=== PATIENT | male | born 1970 ===

== ENCOUNTER 2021-06-24 15:46 | Inpatient (IN) | payer OTHER ==
[~2021-06-24] VITALS: Ht 185.4 cm; Wt 197.3 kg
[2021-06-24 21:54] LABS: Basophils # (auto) 0 10 ^3/uL (0-0.2); Basophils % (auto) 0.6 % (0.0-2.0); Eosinophils # (auto) 0.1 10 ^3/uL (0-0.8); Eosinophils % (auto) 1.6 % (0.0-7.0); Hematocrit 37.6 % (41.0-53.0); Hemoglobin 12.1 g/dL (13.5-17.5); Lymphocytes # (auto) 1.4 10 ^3/uL (0.4-5.4); Lymphocytes % (auto) 21.2 % (10.0-50.0); Mean Corpuscular Hemoglobin 26.2 pg (28.0-32.0); Mean Corpuscular Hgb Conc. 32.3 g/dL (32.0-36.0); Mean Corpuscular Volume 81.1 fL (80.0-100.0); Monocytes # (auto) 0.7 10 ^3/uL (0-1.3); Neutrophils # (auto) 4.5 10 ^3/uL (1.6-8.6); Neutrophils % (auto) 66.6 % (37.0-80.0); Red Blood Cells 4.64 10^6/uL (4.5-5.90); Red Cell Distribution Width 17.5 % (11.8-14.3); White Blood Cell 6.7 10^3/uL (4.4-10.8)
[2021-06-24 22:12] LABS: Albumin 3.5 g/dL (3.4-5.0); Calcium 8.5 mg/dL (8.5-10.1); Potassium 4.6 mmol/L (3.5-5.1)
[2021-06-24 22:29] LABS: BUN/Creatinine Ratio 25.2; Bilirubin, Total 0.5 mg/dL (0.2-1.0); Total Protein 7.1 g/dL (6.4-8.2)
[2021-06-24] MEDS ORDERED: ENOXAPARIN SOD 100 MG/1 ML SYRINGE SC ONE (22:45)
[2021-06-24] MEDS ORDERED: ASPirin 81 mg TAB PO ONE (22:45)
[2021-06-25] MEDS ORDERED: FUROSEMIDE 20 MG/2 ML VIAL IV ONE
[2021-06-25] MEDS ORDERED: DEXTROSE (50%) 50ML SYRG IV PRN
[2021-06-25] MEDS ORDERED: ONDANSETRON HCL 4 MG/2 ML VIAL IV PRN
[2021-06-25] MEDS ORDERED: MORPHINE SULFATE 4 MG/ML SYR/VIAL IV PRN
[2021-06-25] MEDS ORDERED: DOCUSATE SOD 100 MG CAP PO PRN
[2021-06-25] MEDS ORDERED: NITROGLYCERIN 0.4 MG SL TAB SL PRN (03:15)
[2021-06-25] MEDS ORDERED: MORPHINE SULFATE INJECTION 2 MG/ML SYRG IV PRN (03:15)
[2021-06-25] MEDS: SODIUM CHLOR 0.9% PF (SALINE LOCK) 10ML VIAL/SYR IV SCH ×2 (05:44→14:07)
[2021-06-25] MEDS: ACCU-CHEK COMFORT CURVE STRIP VI SCH ×3 (07:00→17:25)
[2021-06-25 08:07] LABS: Basophils # (auto) 0 10 ^3/uL (0-0.2); Eosinophils # (auto) 0.2 10 ^3/uL (0-0.8); Hemoglobin 12.4 g/dL (13.5-17.5); Lymphocytes # (auto) 1.5 10 ^3/uL (0.4-5.4); Red Cell Distribution Width 17.6 % (11.8-14.3)
[2021-06-25 08:09] LABS: Basophils % (auto) 0.5 % (0.0-2.0); Eosinophils % (auto) 3.3 % (0.0-7.0); Hematocrit 38.1 % (41.0-53.0); Lymphocytes % (auto) 19.7 % (10.0-50.0); Mean Corpuscular Hemoglobin 26.2 pg (28.0-32.0); Mean Corpuscular Hgb Conc. 32.5 g/dL (32.0-36.0); Mean Corpuscular Volume 80.4 fL (80.0-100.0); Monocytes # (auto) 0.7 10 ^3/uL (0-1.3); Monocytes % (auto) 8.9 % (0.0-12.0); Neutrophils # (auto) 5.1 10 ^3/uL (1.6-8.6); Neutrophils % (auto) 67.6 % (37.0-80.0); Nucleated Red Blood Cells % 0.2 %; Red Blood Cells 4.74 10^6/uL (4.5-5.90); White Blood Cell 7.6 10^3/uL (4.4-10.8)
[2021-06-25 08:24] LABS: Albumin 3.8 g/dL (3.4-5.0); Calcium 8.7 mg/dL (8.5-10.1); Potassium 3.8 mmol/L (3.5-5.1)
[2021-06-25 08:29] LABS: BUN/Creatinine Ratio 28.2; Bilirubin, Total 0.6 mg/dL (0.2-1.0); Total Protein 7.5 g/dL (6.4-8.2)
[2021-06-25] MEDS ORDERED: FUROSEMIDE 20 MG/2 ML VIAL IV SCH (10:00)
[2021-06-25] MEDS ORDERED: ASPirin 81 mg TAB PO SCH (10:00)
[2021-06-25] MEDS ORDERED: HEPARIN SODIUM (PORCINE) 5000 UNITS/ML 1ML VIAL SC SCH (10:00)
[2021-06-25] MEDS ORDERED: FAMOTIDINE (10MG/ML) 2ML VL IV SCH (10:00)
[2021-06-25] MEDS: InsuLIN REG 1unit/0.01ml Soln (100units/ml) SC SCH ×3 (11:26→17:00)
[2021-06-25] MEDS ORDERED: ZINC220C8 PO (16:32)
[2021-06-25] MEDS ORDERED: ASPI1TAB20 PO (16:32)
[2021-06-25] MEDS ORDERED: ALBU108A5 IN (16:32)
[2021-06-25] MEDS ORDERED: CHOL200010 PO (16:32)
[2021-06-25] MEDS ORDERED: ASCO500C49 PO (16:32)
[2021-06-25] MEDS ORDERED: SITA100T7 PO (17:00)
[2021-06-25] MEDS ORDERED: LISI40TA11 PO (17:00)
[2021-06-25] MEDS ORDERED: FURO40TA4 PO (17:00)
[2021-06-25] MEDS ORDERED: GABA300C10 PO (17:00)
[2021-06-25] MEDS ORDERED: GEMF-19 PO (17:00)
[2021-06-25] MEDS ORDERED: ATOR20TA50 PO (17:00)
[2021-06-25] MEDS ORDERED: ALLO300T2 PO (17:00)
[2021-06-25] MEDS ORDERED: [UNRECOGNIZED DRUG - CODE] SC (17:00)
[2021-06-25] MEDS ORDERED: METF-370 PO (17:00)
[2021-06-25] MEDS ORDERED: GLIM4TAB42 PO (17:00)
[2021-06-25] MEDS ORDERED: NATE120T5 PO (17:00)
[2021-06-25] MEDS ORDERED: POTA-220 PO (17:00)
[2021-06-25 17:19] VITALS: BP 115/79
[2021-06-25] MEDS ORDERED: InsuLIN REG 1unit/0.01ml Soln (100units/ml) SC SCH (22:00)
== END 2021-06-25 17:46 | disposition home or self-care (01) | DRG 177 ==
LOC: ER 15:46 → TELE 06-25 03:05
PROVIDERS: ADMIT Nurse Practitioner Family; ATTEND Internal Medicine
DX: U07.1 COVID-19 (principal); I21.A1 Myocardial infarction type 2; J12.82 Pneumonia due to coronavirus disease 2019; Z68.43 Body mass index [BMI] 50.0-59.9, adult; I13.0 Hypertensive heart and chronic kidney disease with heart failure and stage 1 through stage 4 chronic kidney disease, or unspecified chronic kidney disease; E11.22 Type 2 diabetes mellitus with diabetic chronic kidney disease; E66.01 Morbid (severe) obesity due to excess calories; E78.5 Hyperlipidemia, unspecified; M10.9 Gout, unspecified; I50.9 Heart failure, unspecified; N18.9 Chronic kidney disease, unspecified; Z82.49 Family history of ischemic heart disease and other diseases of the circulatory system; Z88.1 Allergy status to other antibiotic agents; Z88.5 Allergy status to narcotic agent
CPT/HCPCS: 36415; 71045; 80053; 82962; 83880; 84484; 85025; 87426; 93306; 96372; 96374; G0378; J3490